=== PATIENT | female | born 1975 | race Caucasian/White ===

== ENCOUNTER → 2019-06-20 07:34 | Outpatient (CLI) | payer OTHER, SELFPAY ==
--- NOTE | ~2019-06-20 | MM_ITS ---
EXAMINATION: MM screening morgan BI w koadk HISTORY: Screening mammogram TECHNIQUE: Craniocaudal and mediolateral oblique 3-D tomosynthesis images were obtained and synthetic 2-D images were generated. CAD analysis was submitted and interpreted. COMPARISON: Comparison to multiple prior studies sequentially, with oldest reviewed study dated 05/2013. BREAST PARENCHYMAL COMPOSITION: The breasts are heterogeneously dense, which may obscure small masses . FINDINGS: There is no evidence of suspicious mass, calcification, or architectural distortion to sugg est malignancy in either breast. There has been no suspicious interval change. IMPRESSION: 1. No mammographic evidence of malignancy. 2. Recommend routine screening mammography in one year. BI-RADS Category 1: Negative Reviewed, dictated and finalized at location A. MA OPERATOR
== END ==
PROVIDERS: Visit Provider Physician Assistant
DX: Z12.31 Encounter for screening mammogram for malignant neoplasm of breast (principal)
CPT/HCPCS: 77063; 77067

== ENCOUNTER 2023-08-01 14:12 | Outpatient (CLI) | payer OTHER, SELFPAY ==
[2023-08-01 15:57] LABS: Anion Gap 3 mmol/L (4-12); Blood Urea Nitrogen 23 mg/dL (7-17); Calcium 9.7 mg/dL (8.4-10.2); Carbon Dioxide 34 mmol/L (22-30); Chloride 100 mmol/L (98-107); Estimated Glomerular Filt Rate > 60; Glucose 102 mg/dL (65-110); Potassium 3.7 mmol/L (3.4-5.0); Sodium 137 mmol/L (137-145)
== END 2023-08-01 14:13 | disposition home or self-care (01) ==
PROVIDERS: Anesthesiology; PCP Physician Assistant; Visit Provider Obstetrics & Gynecology Gynecology
DX: Z79.899 Other long term (current) drug therapy (principal); Z01.818 Encounter for other preprocedural examination
CPT/HCPCS: 36415; 80048

== ENCOUNTER 2023-08-05 02:23 | Day surgery (SDC) | payer OTHER, SELFPAY ==
[2023-07-25 09:24] VITALS: BMI 35.9
--- NOTE | 2023-07-25 09:28 | PC.NURSE ---
Report to the Outpatient Waiting Room, entrance under the green pavilion located off [facility], at time 6:00 on date 08/05/23. Planned Procedure Time: 7:30. Time changes happen often and if your time is changed the preop area will call you the afternoon before. - You and your visitor will be asked to self-screen and do not enter if you have any COVID symptoms. - A mask is optional within the hospital at this time. Patients may have clear liquids (water, carbonated beverages, clear teas, apple juice) until 3 hours prior to surgery (4:30) with a maximum of 20 ounces. - No food from midnight until time of surgery Take the following medications with a SIP of water the morning of surgery: ATENOLOL DO NOT STOP ANY OF YOUR OTHER PRESCRIPTION MEDICATIONS PRIOR TO SURGERY ?EXCEPT THE FOLLOWING Medications to discontinue per physician: N/A Date to take last dose: N/A Please no make-up, nail cape verdean, hairspray, perfume, deodorant, or body powder the day of surgery. No jewelry (including any body piercings) or valuables the day of surgery, leave them at home. Please take a shower or bath the night before, or the morning of, surgery with an antibacterial soap. Wear comfortable, loose fitting clothing. - Jewelry must be removed prior to entering the operating room. Rings and piercings that are not removed may be cut off. - The hospital will not accept responsibility for valuables. - Please leave all valuables, including medications, at home the day of surgery. If you are going home after surgery, a licensed auto crane driver must drive you home. - NO public transportation without another adult if you receive anesthesia. - We recommend that an adult stay with you for 24 hours following discharge. - We also recommend that you do not drive, make important decision, drink alcoholic beverages, or take any drugs that were not prescribed by your health care provider for at least 24 hours after your discharge time. Follow any additional instructions given to you from your surgeon. If you or anyone in your household have experienced Covid symptoms in the past week, please notify your surgeon or the nurse liaison at the phone number below for possible testing. Telephone instructions given to BALBIR KLINE and asked if any additional questions and then verbalized understanding. Patient advised to call surgeon office or pre surgery nurse liaison [phone] if any additional questions.
[2023-08-05 06:35] VITALS: BP 125/62; PULSE 65; RESP 14; TEMP 37.2; O2SAT 100
[2023-08-05] MEDS: LACTATED RINGERS 1,000 ML 30 ML IV CONT (06:35)
[2023-08-05] MEDS: ACETAMINOPHEN 500 MG TABLET 1000 MG PO (06:35)
--- NOTE | 2023-08-05 06:43 | WPDANESEPPF ---
Anes - Initial Pre Proc Eval Procedure: Operation Date: 08/05/23 07:30 Proposed Procedures p Hysteroscopy Dilation and Curettage - Farnaz Salinas MD Date/Time: 08/05/23 06:43 Surgeon: Farnaz Salinas MD Pre Op Diagnosis: Menorrhagia Patient Data Age: 48 Gender: F Height: 1.6 m Weight: 92.1 kg Allergies Allergy/AdvReac Type Severity Reaction Status Date / Time Penicillins Allergy Mild Swelling Verified 07/25/23 09:23 Sulfa (Sulfonamide Allergy Mild Swelling Verified 07/25/23 09:23 Antibiotics) brompheniramine Allergy Swelling Verified 07/25/23 09:34 [From Dimetapp (brompheniramine-PPA)] phenylpropanolamine Allergy Swelling Verified 07/25/23 09:34 [From Dimetapp (brompheniramine-PPA)] Home Medications Medication Instructions Recorded Confirmed Type alprazolam 0.25 mg tablet (Xanax) 0.25 mg PO DAILY PRN Anxiety 05/08/22 07/25/23 History atenolol 50 mg tablet 50 mg PO DAILY 05/08/22 07/25/23 History hydrochlorothiazide 25 mg tablet 25 mg PO DAILY 05/08/22 07/25/23 History metformin 500 mg tablet 1,000 mg PO DAILY 05/08/22 07/25/23 History Patient hx anesthesia problems: none Family hx anesthesia problems: none Results Review: All pre-operative results and documents have been reviewed as part of the pre-operative evaluation. [facility] Past Medical History Medical History Allergic rhinitis, unspecified Benign essential hypertension Depressive disorder Dyshidrotic eczema Generalized anxiety disorder Hyperlipidemia, unspecified Polycystic ovarian syndrome Vitamin D deficiency, unspecified Surgical History Surgical History History of 09/24/2003 History of cholecystectomy 1998 History of removal of calculus of renal pelvis through percutaneous nephrostomy 1993 [place] teeth removed Family History Family History Father Heart disease Hypertension Grandparent Heart disease paternal grandfather Hypertension Paternal Grandfather Social History Social History Smoking status: Never smoker Alcohol intake: current Alcohol use details: 1/MONTH Substance use: never Substance use type: does not use Lack of Transportation: No Lack of Food: Never True Current Housing: I Have Housing Concerned About Future Housing: No Difficulty Paying Gas/Electric Bills: No Difficulty Paying for Meds: No Currently Unemployed: No Difficulty w/ Childcare or Family Care: No Living arrangements: with family Occupation/Education: occupation Gender identity (if verbalized by the patient): Female Sexual Orientation (if Verbalized by the Patient): Straight or Heterosexual Spiritual care concerns: No Anes - Eval Final PreProcedure Day of Procedure 08/05/23 06:43 Patient weight: obese Heart: regular rate and rhythm Lungs: clear to auscultation Airway: Mallampati scale class 1 Neurological: alert and oriented Last oral intake: >/= 8 hours ASA classification: II Emergent: no Anesthetic plan: proceed Anesthesia type and monitoring: general GIVS and standard monitoring Results Review: All pre-operative results and documents have been reviewed as part of the pre-operative evaluation. Informed Consent: The patient's anesthetic plan and its attendant risks and benefits were discussed with the patient/family/POA. Questions were solicited and answers provided to the satisfaction of the patient/family/POA.
--- NOTE | 2023-08-05 07:09 | WPDHPUPDATE1 ---
History and Physical Update Update Date/Time: 08/05/23 07:09 History and Physical has been reviewed, including an updated exam of the patient. There are NO changes in the patient's condition. Risks, benefits, and alternatives have been discussed and questions answered. Patient agrees to proceed with procedure.
--- NOTE | 2023-08-05 07:09 | PM.HPGS ---
History of Present Illness History of Present Illness Consent: Risks, benefits, and alternatives have been discussed and questions answered. Patient agrees to proceed with procedure. Chief complaint: Menorrhagia Narrative: Lidia Cruz is a 48 year old female With irregular and heavy cycles. Pelvic ultrasound showed an ovarian cyst as well as an enlarged uterus with a fundal fibroid. It was recommended to undergo D&C hysteroscopy to further evaluate. Risks of infection, bleeding, perforation, and possible pathology are reviewed. If the fibroid is submucosal, it was also discussed that this may require more than 1 episode to remove due to fluid imbalance. Patient voices understanding and agrees to proceed. Review of Systems Review of Systems: not repeated day of surgery; patient states no changes in status PMFSH Past Medical History Medical History Allergic rhinitis, unspecified Benign essential hypertension Depressive disorder Dyshidrotic eczema Generalized anxiety disorder Hyperlipidemia, unspecified Polycystic ovarian syndrome Vitamin D deficiency, unspecified Surgical History Surgical History History of 09/24/2003 History of cholecystectomy 1998 History of removal of calculus of renal pelvis through percutaneous nephrostomy 1993 [place] teeth removed Family History Family History Father Heart disease Hypertension Grandparent Heart disease paternal grandfather Hypertension Paternal Grandfather Social History Social History Smoking status: Never smoker Alcohol intake: current Alcohol use details: 1/MONTH Substance use: never Substance use type: does not use Lack of Transportation: No Lack of Food: Never True Current Housing: I Have Housing Concerned About Future Housing: No Difficulty Paying Gas/Electric Bills: No Difficulty Paying for Meds: No Currently Unemployed: No Difficulty w/ Childcare or Family Care: No Living arrangements: with family Occupation/Education: occupation Gender identity (if verbalized by the patient): Female Sexual Orientation (if Verbalized by the Patient): Straight or Heterosexual Spiritual care concerns: No Meds Home Medications and Allergies Home Medications Medication Instructions Recorded Confirmed Type alprazolam 0.25 mg tablet (Xanax) 0.25 mg PO DAILY PRN Anxiety 05/08/22 07/25/23 History atenolol 50 mg tablet 50 mg PO DAILY 05/08/22 08/05/23 History hydrochlorothiazide 25 mg tablet 25 mg PO DAILY 05/08/22 07/25/23 History metformin 500 mg tablet 1,000 mg PO DAILY 05/08/22 07/25/23 History Allergies Allergy/AdvReac Type Severity Reaction Status Date / Time Penicillins Allergy Mild Swelling Verified 08/05/23 07:06 Sulfa (Sulfonamide Allergy Mild Swelling Verified 08/05/23 07:06 Antibiotics) brompheniramine Allergy Swelling Verified 08/05/23 07:06 [From Dimetapp (brompheniramine-PPA)] phenylpropanolamine Allergy Swelling Verified 08/05/23 07:06 [From Dimetapp (brompheniramine-PPA)] Vital Signs Vital Signs - 24 hr 08/05/23 06:35 Temperature 99 F Pulse Rate 65 Respiratory Rate 14 Blood Pressure 125/62 Pulse Oximetry 100 Oxygen Delivery Room Air Exam Const: General: obese ( BMI 37.2) Orientation/consciousness: patient oriented x3 Resp: Effort & Inspection: normal respiratory effort GI: GI Palp: Yes Soft to palpation, No Tenderness to palpation present (GI) and No Palpable mass present : External Female Exam: normal external appearance Speculum Exam - Vagina: normal appearance of the vagina and normal vaginal discharge Speculum Exam - Cervix: normal appearance of the cervix Bimanual exam- vagina & uterus: uterine size normal and
[2023-08-05 07:42] VITALS: BP 102/53; PULSE 62; RESP 16; O2SAT 98
--- NOTE | 2023-08-05 07:46 | W.PM.PROC2 ---
Procedure Note - Detailed Date of Procedure 08/05/23 Pre-op Diagnosis Menorrhagia Post-op Diagnosis Same Procedure Performed D&C hysteroscopy Surgeon Farnaz Salinas MD Anesthesia MAC Findings uterus sounds to 8cm and is very anteverted Description of Procedure The patient is taken to the operating room and placed under anesthesia in the dorsal lithotomy position. She was prepped and draped in the usual sterile fashion. [place] speculum was placed in the vagina and the cervix grasped on the anterior lip with a tenaculum. The uterus attempted to be sounded but internal cervical stenosis is encountered. The cervix is able to be entered with a 4 [place]. The uterus was then sounded to 8cm. And noted to be very anteverted. The diagnostic hysteroscope is placed and and no abnormalities are noted. The hysteroscope was removed and the OO sharp curette is used to curette the endometrium until a good uterine cry was noted in all areas. All instruments are removed. Sponge, needle, and instrument counts are correct per the OR staff. The patient was awakened from anesthesia and taken to recovery in stable condition. Estimated Blood Loss 5 Drains No Packing No Pathology Yes ( Endometrial curettings) Complications No immediate complications Condition Stable Disposition PACU
[2023-08-05] MEDS: KETOROLAC 30 MG/ML VIAL (*BKC) IV PUSH (08:05)
[2023-08-05 08:10] VITALS: BP 120/66; PULSE 63; RESP 16; O2SAT 98
[2023-08-05 08:25] VITALS: BP 110/68; PULSE 62; RESP 14
== END 2023-08-05 08:32 | disposition home or self-care (01) ==
PROVIDERS: PCP Physician Assistant; Visit Provider Obstetrics & Gynecology Gynecology
PROC: 0U5B8ZZ Destruction of Endometrium, Via Natural or Artificial Opening Endoscopic (ICD-10-PCS; CPT 58563; principal; 2023-08-05 07:30)
DX: N92.0 Excessive and frequent menstruation with regular cycle (principal); I10 Essential (primary) hypertension; F32.A Depression, unspecified; F41.9 Anxiety disorder, unspecified; E78.5 Hyperlipidemia, unspecified; E28.2 Polycystic ovarian syndrome; E55.9 Vitamin D deficiency, unspecified; E66.9 Obesity, unspecified; Z68.37 Body mass index [BMI] 37.0-37.9, adult; Z79.84 Long term (current) use of oral hypoglycemic drugs; Z98.890 Other specified postprocedural states; Z90.49 Acquired absence of other specified parts of digestive tract; Z82.49 Family history of ischemic heart disease and other diseases of the circulatory system
CPT/HCPCS: 58558; 36415; 80048; 88305; A9270; J1885; J2250; J2704; J3010; J7120

== ENCOUNTER 2023-08-08 15:14 | Emergency (ER) | payer OTHER, SELFPAY ==
--- NOTE | 2023-08-08 15:21 | ED.URI ---
HPI - URI/Sore Throat General Chief Complaint: Upper Respiratory Infection Stated Complaint: Sore Throat/Wound Check Time Seen by Provider: 08/08/23 15:30 Source: patient Mode of arrival: ambulatory Limitations: no limitations History of Present Illness HPI Narrative: Patient is a 48-year-old female who presents with 3 days of sore throat with worsening congestion, headache, body aches and fatigue the last 24 hours. Family members had strep last week. Patient also has wound on finger. Patient has tried Neosporin and prid. Denies any drainage from wound, redness or warmth. Patient still able move finger normally. Patient has been taking Tylenol and ibuprofen. Denies any allergy or cold and flu medicine. Patient had procedure on Saturday but was not intubated. Related Data Home Medications Medication Instructions Recorded Confirmed alprazolam 0.25 mg tablet (Xanax) 0.25 mg PO DAILY PRN Anxiety 05/08/22 08/08/23 atenolol 50 mg tablet 50 mg PO DAILY 05/08/22 08/08/23 hydrochlorothiazide 25 mg tablet 25 mg PO DAILY 05/08/22 08/08/23 metformin 500 mg tablet 1,000 mg PO DAILY 05/08/22 08/08/23 Allergies Allergy/AdvReac Type Severity Reaction Status Date / Time brompheniramine Allergy Mild Swelling Verified 08/08/23 15:21 [From Dimetapp (brompheniramine-PPA)] Penicillins Allergy Mild Swelling Verified 08/08/23 15:21 phenylpropanolamine Allergy Mild Swelling Verified 08/08/23 15:21 [From Dimetapp (brompheniramine-PPA)] Sulfa (Sulfonamide Allergy Mild Swelling Verified 08/08/23 15:21 Antibiotics) Review of Systems Review of Systems: All systems reviewed & are unremarkable except as noted in HPI and below Constitutional: Constitutional: Reports body ache(s), Denies chills, Reports fatigue, Denies fever(s), Reports headache(s), Denies malaise and Denies weakness Eyes: Eyes: Denies blurry vision, Denies itchy eyes and Denies loss of vision ENT: Denies otalgia, Denies headache(s), Reports nasal congestion, Denies sinus pain and Reports sore throat Cardiovascular: Cardiovascular: Denies chest pain, Denies irregular heart rhythm and Denies dyspnea Respiratory: Respiratory: Denies cough and Denies dyspnea Gastrointestinal: Gastrointestinal: Denies abdominal pain, Denies diarrhea, Denies nausea and Denies vomiting Musculoskeletal: Musculoskeletal: Denies back pain, Reports myalgias and Denies arthralgias Integumentary/Breasts: Skin/Breast: Denies pruritus, Denies rash and Reports wounds Neurologic: Reports headache(s), Denies loss of vision and Denies weakness Psychiatric: Psychiatric: Reports no additional psychiatric complaints Endocrine: Endocrine: Denies fatigue Allergic/Immunologic: Allergic/Immunologic: Denies itchy eyes PMFSH Past Medical History Medical History Allergic rhinitis, unspecified Benign essential hypertension Depressive disorder Dyshidrotic eczema Generalized anxiety disorder Hyperlipidemia, unspecified Polycystic ovarian syndrome Vitamin D deficiency, unspecified Surgical History Surgical History History of 09/24/2003 History of cholecystectomy 1998 History of removal of calculus of renal pelvis through percutaneous nephrostomy 1993 [place] teeth removed Family History Family History Father Heart disease Hypertension Grandparent Heart disease paternal grandfather Hypertension Paternal Grandfather Social History Social History Smoking status: Never smoker Alcohol intake: current Alcohol use details: 1/MONTH Substance use: never Substance use type: does not use Lack of Transportation: No Lack of Food: Never True Current Housing: I Have Housing Concerned About Future Housing: No Difficulty Payi
[2023-08-08 15:24] VITALS: BP 144/81; PULSE 63; RESP 16; TEMP 36.3; O2SAT 100
== END 2023-08-08 16:10 | disposition home or self-care (01) ==
PROVIDERS: Emergency Provider Nurse Practitioner Family; PCP Physician Assistant
DX: J06.9 Acute upper respiratory infection, unspecified (principal); S60.412A Abrasion of right middle finger, initial encounter; X58.XXXA Exposure to other specified factors, initial encounter; I10 Essential (primary) hypertension; E78.5 Hyperlipidemia, unspecified; E55.9 Vitamin D deficiency, unspecified; E28.2 Polycystic ovarian syndrome; F41.1 Generalized anxiety disorder; F32.A Depression, unspecified
CPT/HCPCS: 87081; 87880; 99213; G0463

== ENCOUNTER 2024-04-23 08:28 | Emergency (ER) | payer OTHER, SELFPAY ==
--- NOTE | 2024-04-23 08:33 | ED_ITS ---
HPI - URI/Sore Throat General Chief Complaint: Upper Respiratory Infection Stated Complaint: bilateral ear pain,cough,congestion Time Seen by Provider: 04/23/24 08:46 Source: patient, RN notes reviewed and old records reviewed Mode of arrival: ambulatory Limitations: no limitations History of Present Illness HPI Narrative: 48-year-old female presents to the [facility] with complaints of ear discomfort, cough, congestion. Patient reports a sore throat the 1st day, has improved. Patient reports symptoms for 5 days. Has tried expd-zeq-tsszvca products Onset (ago): day(s) (5) Treatments prior to arrival: cold medicine Related Data Allergies Allergy/AdvReac Type Severity Reaction Status Date / Time brompheniramine (From Allergy Mild Swelling Verified 04/23/24 08:51 Dimetapp (brompheniramine-PPA)) Penicillins Allergy Mild Swelling Verified 04/23/24 08:51 phenylpropanolamine (From Allergy Mild Swelling Verified 04/23/24 08:51 Dimetapp (brompheniramine-PPA)) Sulfa (Sulfonamide Allergy Mild Swelling Verified 04/23/24 08:51 Antibiotics) Review of Systems Review of Systems: All systems reviewed & are unremarkable except as noted in HPI and below Constitutional: Constitutional: Reports no additional constitutional complaints ENT: Reports as per HPI Cardiovascular: Cardiovascular: Reports no additional cardiovascular complaints, Denies chest pain and Denies dyspnea Respiratory: Respiratory: Reports no additional respiratory complaints, Denies chest congestion, Denies cough and Denies dyspnea Musculoskeletal: Musculoskeletal: Reports no additional musculoskeletal complaints Integumentary/Breasts: Skin/Breast: Reports system reviewed and no additional complaints, except as docu PMFSH Past Medical History Medical History Dyshidrotic eczema Depressive disorder Benign essential hypertension Polycystic ovarian syndrome Allergic rhinitis, unspecified Generalized anxiety disorder Vitamin D deficiency, unspecified Hyperlipidemia, unspecified Surgical History Surgical History History of hysteroscopy D&C 08/05/2023 [place] teeth removed History of removal of calculus of renal pelvis through percutaneous nephrostomy 1993 History of 09/24/2003 History of cholecystectomy 1998 Family History Family History Father Heart disease Hypertension Grandparent Heart disease paternal grandfather Hypertension Paternal Grandfather Social History Social History Smoking status: Never smoker Alcohol intake: current Alcohol use details: 1/MONTH Substance use: never Substance use type: does not use Do You Feel Safe in your Home?: Yes Lack of Transportation: No Lack of Food: Never True Current Housing: I Have Housing Concerned About Future Housing: No Difficulty Paying Gas/Electric Bills: No Difficulty Paying for Meds: No Currently Unemployed: No Education: Associate Degree Difficulty w/ Childcare or Family Care: No Living arrangements: with family Occupation/Education: occupation Gender identity (if verbalized by the patient): Female Sexual Orientation (if Verbalized by the Patient): Straight or Heterosexual Spiritual care concerns: No Comments At the time of my signature, I reviewed and agree with the nursing past medical, surgical, social, and family history. There is no relevant family history pertinent to the patient complaint. Exam Const: General: cooperative, healthy appearing, comfortable, no acute distress, well developed, alert and well nourished Nutritional Appearance: well nourished Orientation/consciousness: patient oriented x3 Limitations: no limitations HENMT: Head: normal to inspection Ears: EAC's normal and TM abnormal bulging on the left and with fluid behind the TM bilateral (Greater on the left than the right) Face/Nose/Sinus: normal facial exam and face symmetric Face and sinus: normal facial exam and face symmetric Mouth: Yes Normal oral and palatal mucosa present, Yes lip normal, Yes tongue normal and Yes moist mucous membranes Throat: uvula midline, postnasal drainage and no uvular edema Eyes: General: appearance normal, both eyes and all related structures Neck: Neck: normal visual inspection, full ROM, no lymphadenopathy and no meningeal signs Chest: Chest palpation & inspection: normal inspection of the chest Resp: Effort & Inspection: normal respiratory effort and able to speak in complete sentences Auscultation: clear to auscultation bilaterally, no crackles, no rales, no rhonchi and no wheezes Cardio: Rate: regular rate Skin: General skin exam: normal color and no rashes or lesions noted Neuro: General: patient oriented x3, gait normal, moves all extremities and no meningeal signs Cognition (Neuro): normal cognition Speech: normal speech Gait exam (Neuro): Normal gait present Extrem: General: normal to inspection, full ROM, capillary refill normal and normal gait Psych: Appearance: grossly normal and well kempt Mental Status: mental status grossly normal Speech and movement: Normal speech and movement present and Clear speech present Affect: normal affect Attitude: cooperative Course Course Level of Care: Express Care Visit Vital Signs Vital signs: Vital Signs Temperature 97.5 F L 04/23/24 08:34 Pulse Rate 76 04/23/24 08:34 Respiratory Rate 16 04/23/24 08:34 Blood Pressure 135/89 04/23/24 08:34 Pulse Oximetry 100 04/23/24 08:34 Oxygen Delivery Room Air 04/23/24 08:34 Temperature 97.5 F L 04/23/24 08:34 Pulse Rate 76 04/23/24 08:34 Respiratory Rate 16 04/23/24 08:34 Blood Pressure 135/89 04/23/24 08:34 Pulse Oximetry 100 04/23/24 08:34 Oxygen Delivery Room Air 04/23/24 08:34 Reviewed MDM - URI/Sore Throat MDM Narrative Medical decision making narrative: Patient sitting exam room. Nontoxic, vitals stable. Patient in no acute distress. Patient presents with URI symptoms fire 5 days, however symptoms improving. Patient's exam with postnasal drainage, clear fluid behind TMs. Patient appropriate for outpatient follow-up of viral URI Discharge instructions reviewed with patient, as well as provided in writing per nursing staff. The instructions also include specific and strict return/GO TO THE ER as well as f/u information. All questions have been answered, and the patient deny any further questions with discharge and discharge plan. Some parts of this dictation were generated by voice recognition software and may contain typographical and/or grammatical inaccuracies. Differential Diagnosis Differential diagnosis: Likely upper respiratory infection, otitis media, sinusitis, viral infection, bronchitis and pharyngitis Critical Care Time Critical Care Time Critical Care Time: No Discharge Plan Discharge Clinical Impression: Upper respiratory infection, Post-nasal drainage, Acute serous otitis media, bilateral Patient Disposition: Home, Self-Care Condition: Stable Instructions: Antibiotic Form, Upper Respiratory Infection (ED), Fluid In The Ear (Serous Otitis Media) (ED), Postnasal Drip (DC) Additional Instructions: Your symptoms are likely due to a viral illness, which is not treated with antibiotics. Typically viral infections last 7-10 days, can linger for couple of weeks. It is very important to treat your symptoms. Drink plenty of water, Gatorade, Pedialyte, ice pops or Jell-O. -Alternate Tylenol and Motrin per package directions for fever or pain. You can alternate every 4 hours -Antihistamine medication such as Zyrtec/Claritin/Niyah during the day can help improve symptoms. -doing daily nasal irrigations can help relieve pressure your sinuses. Things like a Neti pot -Use Flonase twice a day for 5 days then daily to help reduce the inflammation and dry up your sinuses. -You can also use Mucinex. Be sure to drink plenty of water with this medication at least 8 ounces with every dose and it is important to drink 8 to 10 glasses of water per day. Water is a natural decongestant -Eat and drink things that are easy to swallow, like tea or soup, or popsicles. -Oral rinses such as: Salt water gargles and/or may use topical anesthetic (eg. Chloraseptic spray) or lozenges to relieve dryness or throat pain). -Frequent hand washing or hand neighborhood worker is one of the best ways to prevent spread of infection. -Using a vaporizer or humidifier at night will also help thin secretions and help with coughing up phlegm. -Follow up with primary care provider in 7-10 days if condition is not improving - For new or worsening symptoms go directly to the nearest ER Patient Language: Turkmen Prescriptions: New methylprednisolone [Medrol (Elliott)] 4 mg tablets,dose pack See Rx Instructions PO .COMPLEX Qty: 21 0RF Rx Instructions: orally per package directions No Action spironolactone 50 mg tablet 50 mg PO DAILY Qty: 90 2RF alprazolam [Xanax] 0.25 mg tablet 0.25 mg PO DAILY PRN (Reason: Anxiety) 30 Days Qty: 30 2RF atenolol 50 mg tablet 50 mg PO DAILY Qty: 90 1RF Wegovy 2.4 mg/0.75 mL pen injector 2.4 mg subcut WEEKLY Qty: 3 0RF metformin 500 mg tablet 1,000 mg PO BID Qty: 180 1RF Follow-up/Referrals: David Hernandez MD [Primary Care Provider] - 2 Weeks ([facility] care follow up ) Stand Alone Forms: Work/School Release IP Time of Disposition: 09:00
[2024-04-23 08:34] VITALS: BP 135/89; PULSE 76; RESP 16; TEMP 36.4; O2SAT 100
[2024-04-23 08:48] VITALS: PULSE 76; RESP 16; O2SAT 100
== END 2024-04-23 09:08 | disposition home or self-care (01) ==
PROVIDERS: Emergency Provider Nurse Practitioner; PCP Family Medicine
DX: J06.9 Acute upper respiratory infection, unspecified (principal); R09.82 Postnasal drip; H65.03 Acute serous otitis media, bilateral; I10 Essential (primary) hypertension; E28.2 Polycystic ovarian syndrome; E78.5 Hyperlipidemia, unspecified
CPT/HCPCS: 99213; G0463

== ENCOUNTER 2024-07-11 10:03 | Outpatient (CLI) | payer OTHER, SELFPAY ==
--- NOTE | ~2024-07-11 | US_ITS ---
Pelvic ultrasound. Clinical History: Right ovarian cyst Technique: Realtime transabdominal and transvaginal scanning of the pelvis was performed. Color flow Doppler and Doppler spectral analysis were performed. Findings: The uterus is anteverted. The endometrial stripe has a thickness of 3 mm. Small hypoechoic fibroid measures 2.3 cm in diameter. The right ovary measures 5.9 x 6.2 x 5.5 cm. Simple right ovarian cyst measures 5.5 cm in diameter. The left ovary measures 3.1 x 2.3 x 3.8 cm. Simple left ovarian cyst measures 3.[address] maximum diame ter. There is no evidence of free fluid in the cul de sac. Impression: Bilateral simple ovarian cysts, measuring 5.5 cm on the right ovary, and 3.0 cm on the left ovary. Reviewed, dictated and finalized at [facility]. Impression: Bilateral simple ovarian cysts, measuring 5.5 cm on the right ovary, and 3.0 cm on the left ovary.
== END 2024-07-11 10:04 | disposition home or self-care (01) ==
LOC: MICIMG 10:04
PROVIDERS: PCP Nurse Practitioner; Visit Provider Nurse Practitioner
DX: N83.201 Unspecified ovarian cyst, right side (principal); N83.202 Unspecified ovarian cyst, left side
CPT/HCPCS: 76856

== ENCOUNTER 2024-12-15 15:51 | Outpatient (CLI) | payer OTHER, SELFPAY ==
--- NOTE | ~2024-12-15 | MM_ITS ---
EXAMINATION: MM screening [facility] w [facility] HISTORY: Screening mammogram TECHNIQUE: Craniocaudal and mediolateral oblique 3-D tomosynthesis images were obtained and synthetic 2-D images were generated. CAD analysis was submitted and interpreted. COMPARISON: 06/20/2019 BREAST PARENCHYMAL COMPOSITION:Dense: The breasts are heterogeneously dense, which may obscure small masses. FINDINGS: No suspicious mass, calcification, or architectural distortion are identified in either breast to suggest malignancy. There has been no suspicious interval change. IMPRESSION: No mammographic evidence of malignancy. Recommend routine screening mammography in one year. BI-RADS Category 1: Negative Reviewed, dictated and finalized at location .
== END 2024-12-15 15:52 | disposition home or self-care (01) ==
LOC: MICIMG 15:52
PROVIDERS: PCP Family Medicine; Visit Provider Nurse Practitioner
DX: Z12.31 Encounter for screening mammogram for malignant neoplasm of breast (principal)
CPT/HCPCS: 77063; 77067

== ENCOUNTER 2025-03-15 02:17 | Day surgery (SDC) | payer OTHER, SELFPAY ==
[2025-03-01 12:04] VITALS: BMI 29.6
--- OUTSIDE RECORDS SUMMARY | 2025-03-15 02:21 | XMS_ITS | Clinical Summary ---
Author Organization [facility] Address [address] [place] [address] Care Team Providers Care Pebble Mill Operator Name Role Phone aDvid Hernandez MD Primary Care Provider Allergies Active Allergy Reactions Criticality Noted Date Comments Brompheniramine Hives Reaction: Hives, Penicillins Hives,Rash Reaction: Hives, Skin Rash, Phenylpropanolamine Hives Reaction: Hives, Sulfanilamide Hives,Rash Reaction: Hives, Skin Rash, Medications promethazine-DM (PROMETHAZINE-D M) 1.25-3 mg/mL syrup Take 5 mL by mouth 4 (four) times a day as needed for cough 118 mL 5 Active fluticasone propionate (FLONASE) 50 mcg/actuation nasal spray Administer 1 spray into each nostril daily 16 g 5 Active Active Problems Problem Noted Date Diagnosed Date Hypertension 01/19/2013 Overview (08/01/2016): HYPERTENSION NOS Surgical History Surgery Date Site/Laterality Comments CHOLECYSTECTOMY 1997 Cholecystectomy SECTION 2004 section Medical History Medical History Date Comments Disorder of gallbladder Gallblad dilia disease Hypertension Hypertension Anxiety disorder Anxiety Family History Medical History Relation Name Comments Coronary artery disease Father Stevo nary artery disease; Hypertension Father Hypertension; Depression Mother Depression; Hyperlipidemia Mother Hyperlipidemi a; Rheum arthritis Mother Rheumatoid a rthritis; Relation Name Status Comments Father Mother Social History Tobacco Use Types Packs/Day Years Used Date Smoking Tobacco: Never Assessed Alcohol Use Standard Drinks/Week Comments No 0 (1 standard drink = 0.6 oz pur e alcohol) Personal Safety Answer Date Recorded Have you ever been in or are you currently in a harmful physical or emotional relationship or is someone making you feel afraid or unsafe? Denies 05/09/2024 Comments Unknown Sex and Gender Information Value Date Recorded Sex Assigned at Not on file Legal Sex Female 3:01 AM PLASMA PROCESSOR Gender Identity Not on file Sexual Orientation Not on file Last Filed Vital Signs Vital Sign Reading Time Taken Comments Blood Pressure 136/89 05/09/2024 4:15 PM PLASMA PROCESSOR Pulse 70 05/09/2024 4:15 PM PLASMA PROCESSOR Temperature 36.7 C (98.1 F) 05/09/2024 2:13 PM PLASMA PROCESSOR Respiratory Rate 16 05/09/2024 4:15 PM PLASMA PROCESSOR Oxygen Saturation 100% 05/09/2024 4:15 PM PLASMA PROCESSOR Inhaled Oxygen Concentration - - Weight 127.5 kg (281 lb) 01/19/2013 12:59 PM CDT Height 160 cm (5' 3) 01/19/2013 12:59 PM CDT Body Mass Index 49.78 01/19/2013 12:59 PM CDT Plan of Treatment Health Maintenance Due Date Last Done Comments Cervical Cancer Screening 1975 Colon Cancer Screening-Colonoscopy 1975 Depression Screening 1975 Hepatitis C Screening 1975 DTaP/Tdap/Td Vaccine (1 - Tdap) 1986 Hepatitis B Screening 1993 Regular Well Visit/Exam 18-64 1993 Breast Cancer Screening-Mammogram 07/14/2024 07/15/2023, 07/15/2023 Covid-19 Vaccine (3 - 2024-2 6 season) 2024 08/27/2020, 08/06/2020 Influenza Vaccine (#1) 2024 Pneumococcal vaccine <65 Aged Out No longer eligible based on patient's age to complete this topic Insurance Care Teams Pebble Mill Operator Relationship Specialty Start Date End Date David Hernandez MD [address] [place] [id number] PCP - General Family Medicine 05/09/24
--- OUTSIDE RECORDS SUMMARY | 2025-03-15 02:21 | XMS_ITS | Clinical Summary ---
Author Organization [facility] Address [address] [place] [id number] Care Team Providers Care Newspaper Photo Editor Name Role Phone David Hernandez MD Primary Care Provider [phone] Allergies Active Allergy Reactions Criticality Noted Date Comments Dimetapp Children's Cold-Cough Swelling 12/13 Penicillins Other (see comment) 12/13/2022 As a baby Sulfa Antibiotics Other (see comment) As a baby Medications atenolol (TENORMIN) 50 MG tablet 10/26/2022 Active metFORMIN (GLUCOPHAGE) 500 MG tablet 10/26/2022 Activ e cefdinir (OMNICEF) 300 MG Cap capsule Take 1 capsule (300 mg total) by mouth 2 (two) times daily. 14 capsule 04/25/2024 Active Social History Tobacco Use Types Packs/Day Years Used Date Smoking Tobacco: Never Smokeless Tobacco: Never Tobacco Cessation:Counseling Given: Not Answered Alcohol Use Standard Drinks/Week Comments Not Currently 0 (1 standard drink = 0.6 oz pur e alcohol) Comments No Sex and Gender Information Value Date Recorded Sex Assigned at Not on file Legal Sex Female 8:17 PM CDT Gender Identity Not on file Sexual Orientation Not on file Last Filed Vital Signs Vital Sign Reading Time Taken Comments Blood Pressure 134/89 04/25/2024 8:13 AM CHIPS SCREEN TENDER Pulse 67 04/25/2024 8:13 AM CHIPS SCREEN TENDER Temperature 36.5 C (97.7 F) 04/25/2024 8:13 AM CHIPS SCREEN TENDER Respiratory Rate 16 04/25/2024 8:13 AM CHIPS SCREEN TENDER Oxygen Saturation 99% 04/25/2024 8:13 AM CHIPS SCREEN TENDER Inhaled Oxygen Concentration - - Weight 80.3 kg (177 lb) 04/25/2024 8:13 AM CHIPS SCREEN TENDER Height 160 cm (5' 3) 04/25/2024 8:13 AM CHIPS SCREEN TENDER Body Mass Index 31.35 04/25/2024 8:13 AM CHIPS SCREEN TENDER Plan of Treatment Health Maintenance Due Date Last Done Comments Colorectal Cancer Screening Colonoscopy (10 Years) 1975 Annual Physical 1978 Hepatitis C 1993 DTaP, Tdap and Td Vaccines ( 1 - Tdap) 1994 Hepatitis B Vaccines (1 of 3 - 19+ 3-dose series) 1994 Cervical Cancer Screening Pa p Smear (Age 30 to 64) Every 3 Years 01/31/2020 01/30/2017 Cervical Cancer Screening Pa p with HPV Testing (Age 30 to 64) Every 5 Years 01/30/2022 01/30/2017 Cervical Cancer Screening wi th HPV 01/30/2022 COVID-19 Vaccine (2024-2 6 season) 2024 08/27/2020, 08/06/2020 Influenza Adult (#1) 2025 Mammogram Screening 07/14/2025 07/15/2023 Hepatitis A Vaccines Aged Out No long er eligible based on patient's age to complete this topic Meningococcal B Vaccine Aged Out No l onger eligible based on patient's age to complete this topic Meningococcal Vaccine Aged Out No romana indra eligible based on patient's age to complete this topic Pneumococcal Vaccine: Pediatrics (0 to 5 Years) and At-Risk Patients (6 to 49 Years) Aged Out No longer eligible b ased on patient's age to complete this topic RSV Immunizations Under 20 Months Aged Out No longer eligible b ased on patient's age to complete this topic Insurance [employer] Care Teams Newspaper Photo Editor Relationship Specialty Start Date End Date David Hernandez MD [address] [place] [id number] PCP - General FAMILY PRACTICE 12/13/22
--- OUTSIDE RECORDS SUMMARY | 2025-03-15 02:21 | XMS_ITS | Encounter Summary ---
Author Organization [facility] Address [address] [place] [address] Care Team Providers Care Pediatric Nurse Name Role Phone Unavailable Primary Care Provider Unavailabl e Encounter Details Date Type Department Care Team (Late st Contact Info) Description 05/12/2024 Lab Requisition [facility] - DermPath Lab [address] [place] [id number] Amanda Jones PA [address] [place] [address] Social History Tobacco Use Types Packs/Day Years Used Date Smoking Tobacco: Never Assessed Comments Unknown Sex and Gender Information Value Date Recorded Sex Assigned at Not on file Legal Sex Female 7:04 AM CDT Gender Identity Not on file Sexual Orientation Not on file documented as of this encounter Plan of Treatment Not on file documented as of this encounter Procedures Procedure Name Priority Date/Time Associated Diagnosis Comments DERMATOPATHOLOGY Routine 05/12/2024 1:08 PM [facility] documented in this encounter Results * DERMATOPATHOLOGY (05/12/2024 1:08 PM [facility]) Case Report Dermatopathology Report Case: [id number] Authorizing Provider: Amanda Jones PA Collected: 05/12/2024 01:08 PM Ordering Location: [facility] - Received: 05/12/2024 04:38 PM DermPath Lab Pathologist: Willian Hernandez MD Specimen: Skin, left zygoma 5 5:09 PM [facility] Final Diagnosis Specimen A. SKIN, left zygoma: INTRADERMAL MELANOCYTIC NEVUS WITH CONGENITAL FEATURES (D22.9) 5 5:09 PM [facility] at [address] [facility] Clinical History Nevus; Irritated 5 5:09 PM [facility] DERMATOPATHOLOGY [facility]ORAT[facility] Gross Description Specimen A: Received is one formalin filled container labeled with the patient's name and designated left zygoma. The specimen consists of a shave biopsy measuring 8x7x4 mm. Jar 0. 5 5:09 PM [facility] DERMATOPATHOLOGY LABORATORY Microscopic Description Specimen A. SKIN, left zygoma: There are nests of cytologically bland melanocytes within the dermis. Some of these melanocytes are concentrated around blood vessels and adnexal structures. 5 5:09 PM [facility] DERMATOPATHOLOGY LABORATORY Disclaimer An external and internal positive and negative controls are appropriate for the histochemical, immunohistochemical and immunofluorescence stain(s) in this case (if any), except where stated explicitly. The performance characteristics of the stain(s) cited in this report were developed and its performance characteristic determined by the Dermatopathology Laboratory at [facility], directed by Dr. Christine Hernandez. These tests need not be, and therefore are not, approved by the [place] Food and Drug Administration. The tests are used for clinical purposes. Billing Codes Specimen Charges Stain Charges 59848 1 5 5:09 PM [facility] DERMATOPATHOLOGY LABORATORY Embedded Images 5 5:09 PM [facility] DERMATOPATHOLOGY [facility] Pathology/Cytolo gy TISSUE SPECIMEN FROM SKIN / Unknown 05/12/2024 1:08 PM [facility] 05/12/2024 4:38 PM [facility] Amanda [facility] - PATHOLOGY/CYTOLOGY ORDERAB LES Final Result DERMATOPATHOLOGY LABORATORY [facility] - Department of Dermatology [address] [place] [address], [facility] [phone] documented in this encounter Visit Diagnoses Not on filedocumented in this encounter
--- OUTSIDE RECORDS SUMMARY | 2025-03-15 02:21 | XMS_ITS | Clinical Summary ---
Author Organization [facility] Address [address] [place] [place] [address] Care Team Providers Care Development Lead Name Role Phone Unavailable Primary Care Provider Unavailabl e Source Comments [facility],non-owned Affiliates and Associated Physician Practices is amultiple site organization consisting of ambulatory clinics and hospital sitesin [place], [place], [place] and [place]. This disclosure is being madepursuant to the Care Everywhere program and may not contain all information available regarding this patient. Last updated 18.[facility] Social History Tobacco Use Types Packs/Day Years Used Date Smoking Tobacco: Never Assessed Comments Unknown Sex and Gender Information Value Date Recorded Sex Assigned at Not on file Legal Sex Female 7:04 AM CDT Gender Identity Not on file Sexual Orientation Not on file Plan of Treatment Health Maintenance Due Date Last Done Comments COLOGUARD (AGES 45-75) - COL ON CA SCREENING 1975 COLON MONITORING 1975 COLONOSCOPY - COLON CA SCREENING 1975 CT COLONOGRAPHY - COLON CA SCREENING 1975 Colorectal Cancer Screening 1975 FIT - COLON CA SCREENING 1975 FLEX SIG - COLON CA SCREENING 1975 LIPID TESTING 1975 MAMMOGRAM 1975 HIV SCREENING 1990 HEPATITIS C SCREENING 05/08/1993 DTAP/TDAP/TD VACCINES (1 - Tdap) 1994 HEPATITIS B VACCINE (1 of 3 - 19+ 3-dose series) 1994 PAP SMEAR 1996 DEPRESSION SCREENING 04/29/2024 COVID-19 VACCINE ( - 2023-2 5 season) 2024 INFLUENZA VACCINE (#1) 2024 ZOSTER VACCINE (1 of 2) 2025 HIB VACCINE Aged Out No longer eligi ble based on patient's age to complete this topic HPV VACCINE Aged Out No longer eligi ble based on patient's age to complete this topic MENINGOCOCCAL (Group B) VACC INE SHARED DECISION-MAKING Aged Out No longer eligibl e based on patient's age to complete this topic MENINGOCOCCAL GROUPS A/C/Y/W VACCINE Aged Out No longer eligible b ased on patient's age to complete this topic Insurance SELF PAY NO INSURANCE Member Subscriber Plan / Payer (Ef fective for All Dates) Name:Lidia Garrison Member ID:Not on file Relation to Subscriber:Not on file Name:LIDIA GARRISON Subscriber ID:Not on file Address: [address] [place] [phone] Payer ID:Not on file Group ID:Not on file Type:Self Pay Address: [facility] SELF PAY NO INSURANCE Member Subscriber Plan / Payer (Ef fective for All Dates) Name:Shannonmeet Lidia Member ID:Not on file Relation to Subscriber:Not on file Name:LIDIA GARRISON Subscriber ID:Not on file Address: [address] [place] [phone] Payer ID:Not on file Group ID:Not on file Type:Self Pay Address: [facility] SELF PAY NO INSURANCE Member Subscriber Plan / Payer (Ef fective for All Dates) Name:ShannonStanley janena Member ID:Not on file Relation to Subscriber:Not on file Name:SHANNONSTANLEY JANENA Subscriber ID:Not on file Address: [address] [place] [phone] Payer ID:Not on file Group ID:Not on file Type:Self Pay Address: [facility]
--- OUTSIDE RECORDS SUMMARY | 2025-03-15 02:21 | XMS_ITS | Clinical Summary ---
Author Organization [facility] Address [address] [facility] [place] [address] Care Team Providers Care Site Foreman Name Role Phone Unavailable Primary Care Provider Unavailabl e Social History Tobacco Use Types Packs/Day Years Used Date Smoking Tobacco: Never Assessed Comments Unknown Sex and Gender Information Value Date Recorded Sex Assigned at Not on file Legal Sex Female 5:43 PM [employer] Gender Identity Not on file Sexual Orientation Not on file Plan of Treatment Health Maintenance Due Date Last Done Comments DTAP/TDAP/TD VACCINES (1 - Tdap) 1994 HEPATITIS B VACCINES (1 of 3 - 19+ 3-dose series) 1994 HPV/Cotest (21-29) 1996 HPV/Cotest (30-65) 2005 CERVICAL CANCER SCREENING 01/31/2020 PAP SMEAR 01/31/2020 01/30/2017 COLORECTAL SCREENING 2020 Colorectal Cancer Screening 2020 FIT-DNA Q 3 years 2020 FIT/FOBT Q 1 year 2020 Flex Sig/CT Colonography Q 5 years 2020 BREAST CANCER SCREENING 07/14/2024 07/15/19 24, 01/16/2022, 01/16/2022, Additional history exists INFLUENZA VACCINE (#1) 2024 Procedures Procedure Name Priority Date/Time Associated Diagnosis Comments MAMMO 3D GEOVANNA SCREEN BILAT W OR WO CAD Routine 07/15/2023 3:19 PM CDT Breast cancer screening by mammogram from Last 3 Months or Most Recently Relevant to Health Maintenance Results * MAMMO 3D GEOVANNA SCREEN BILAT W OR WO CAD (07/15/2023 3:19 PM CDT) Anatomical Region Laterality Modality Breast Bilateral Mammography 07/15/2023 3:20 PM CDT Impressions 07/15/2023 3:57 PM CDT IMPRESSION: 1. BI-RADS Category 2. benign findings. Annual screening mammography recommended. 2. Breast Composition: The breasts are heterogeneously dense, which may obscure small masses or lesions. A) A negative report should not delay a biopsy if a dominant or clinically suspicious mass is present. B) Adenosis and dense breasts may obscure an underlying neoplasm. C) Study interpreted with computer-aided detection. MQSA BI-RADS Categories: Category 0 - needs additional imaging evaluation. Category 1 - negative. Category 2 - benign findings. Category 3 - probably benign findings, but short interval followup is recommended. Category 4 - suspicious abnormality-biopsy should be considered. Category 5 - highly suggestive of malignancy and appropriate action should be taken. Narrative 07/15/2023 3:57 PM CDT EXAMINATION: MAMMO 3D GEOVANNA SCREEN BILAT W OR WO CAD WITH 3-D TOMOSYNTHESIS AND COMPUTER-AIDED DETECTION (CAD) DATE: 07/15/2023 3:19 PM COMPARISON STUDIES: January 16, 2022, August 12, 2020. CLINICAL HISTORY: Screening, no complaints. Family history of breast CA, grandmother. Breast cancer screening by mammogram FINDINGS: Bilateral CC, MLO, 2-D and 3-D acquisitions. Heterogeneously dense residual fibroglandular parenchyma unfortunately could obscure underlying lesions. Similar in appearance and distribution to the previous exams. No evidence of dominant mass, architectural distortion, skin thickening, nipple retraction or suspicious clusters of microcalcifications. Benign calcifications redemonstrated. . Milad[facility] MAMMO ORDERABLES Final Result from Last 3 Months or Most Recently Relevant to Health Maintenance Insurance [facility] OPT[employer] PPO [id number] [facility] Address: [place] [address]
[2025-03-15 09:11] VITALS: BP 137/93; PULSE 59; RESP 18; TEMP 36.1; O2SAT 100; BMI 29.9
[2025-03-15 09:15] LABS: BEDSIDEPREGUCG Negative (Negative)
[2025-03-15] MEDS: LACTATED RINGERS 1,000 ML 150 ML IV CONT (09:23)
--- NOTE | 2025-03-15 09:42 | WPDANESEPPF ---
Anes - Initial Pre Proc Eval Procedure: Operation Date: 03/15/25 10:00 Proposed Procedures p Screening Colonoscopy - Zeferino Saab MD Date/Time: 03/15/25 09:42 Surgeon: Zeferino Saab MD Pre Op Diagnosis: Encounter for screening for malignant neoplasm of Patient Data Age: 49 Gender: F Height: 1.57 m Weight: 74.4 kg Last Vital Signs Temp 36.1 C L 03/15/25 09:11 Pulse 59 L 03/15/25 09:11 Resp 18 03/15/25 09:11 BP 137/93 H 03/15/25 09:11 Pulse Ox 100 03/15/25 09:11 O2 Del Method Room Air 03/15/25 09:11 Allergies Allergy/AdvReac Type Severity Reaction Status Date / Time brompheniramine (From Allergy Mild Swelling Verified 03/15/25 09:10 Dimetapp (brompheniramine-PPA)) Penicillins Allergy Mild Swelling Verified 03/15/25 09:10 phenylpropanolamine (From Allergy Mild Swelling Verified 03/15/25 09:10 Dimetapp (brompheniramine-PPA)) Sulfa (Sulfonamide Allergy Mild Swelling Verified 03/15/25 09:10 Antibiotics) Home Medications ?Medication ?Instructions ?Recorded ?Confirmed ?Type spironolactone 50 mg tablet 50 mg PO DAILY #90 tabs 09/09/23 03/15/25 Rx alprazolam 0.25 mg tablet (Xanax) 0.25 mg PO DAILY PRN Anxiety 30 08/20/24 03/01/25 Rx days #30 tabs metformin 500 mg tablet 1,000 mg (2 x 500 mg) PO BID 90 09/25/24 03/15/25 Rx days #360 tabs atenolol 50 mg tablet 50 mg PO DAILY #90 tabs 12/24/24 03/15/25 Rx semaglutide (weight loss) 2.4 2.4 mg (0.75 mL) subcut WEEKLY 01/05/25 03/15/25 Rx mg/0.75 mL subcutaneous pen days #9.75 mL injector (Wegovy) aspirin 81 mg tablet,delayed 81 mg PO DAILY 03/01/25 03/15/25 History release (Adult Low Dose Aspirin) Laboratory Tests 03/15/25 03/15/25 09:11 09:21 POC Capillary Glucose 71 mg/dl (65-105) POC Urine HCG, Qual Negative (Negative) Patient hx anesthesia problems: none Family hx anesthesia problems: none Results Review: All pre-operative results and documents have been reviewed as part of the pre-operative evaluation. [facility] Past Medical History Medical History Obesity (BMI 30.0-34.9) Essential hypertension Dyshidrotic eczema Depressive disorder Benign essential hypertension Polycystic ovarian syndrome Allergic rhinitis, unspecified Generalized anxiety disorder Vitamin D deficiency, unspecified Hyperlipidemia, unspecified Surgical History Surgical History History of hysteroscopy D&C 08/05/2023 [place] teeth removed History of removal of calculus of renal pelvis through percutaneous nephrostomy 1993 History of 09/24/2003 History of cholecystectomy 1998 Family History Family History Father Heart disease Hypertension Grandparent Heart disease paternal grandfather Hypertension Paternal Grandfather Social History Social History Smoking status: Never smoker Alcohol intake: never Alcohol use details: 1/MONTH Substance use: never Substance use type: does not use Do You Feel Safe in your Home?: Yes Lack of Transportation: No Lack of Food: Never True Current Housing: I Have Housing Concerned About Future Housing: No Difficulty Paying Gas/Electric Bills: No Difficulty Paying for Meds: No Currently Unemployed: No Education: Associate Degree Difficulty w/ Childcare or Family Care: No Living arrangements: with family Occupation/Education: occupation Gender identity (if verbalized by the patient): Female Sexual Orientation (if Verbalized by the Patient): Straight or Heterosexual Spiritual care concerns: No Anes - Eval Final PreProcedure Day of Procedure 03/15/25 09:42 Patient weight: obese Heart: regular rate and rhythm Lungs: clear to auscultation Airway: Mallampati scale class II Neurological: alert and oriented Last oral intake: >/= 8 hours ASA classification: III Emergent: no Anesthetic plan: proceed Anesthesia type and monitoring: general GIVS and standard monitoring Results Review: All pre-operative results and documents have been reviewed as part of the pre-operative evaluation. Informed Consent: The patient's anesthetic plan and its attendant risks and benefits were discussed with the patient/family/POA. Questions were solicited and answers provided to the satisfaction of the patient/family/POA.
--- NOTE | 2025-03-15 10:02 | PM.HPGS ---
History of Present Illness History of Present Illness Consent: Risks, benefits, and alternatives have been discussed and questions answered. Patient agrees to proceed with procedure. Chief complaint: Encounter for screening for malignant neoplasm of Narrative: Lidia Cruz is a 49 year old female here for first screening colonoscopy Review of Systems Review of Systems: All systems reviewed & are unremarkable except as noted in HPI and below PMFSH Past Medical History Medical History (Updated 03/15/25 @ 10:02 by Zeferino Saab MD) Colon cancer screening Obesity (BMI 30.0-34.9) Essential hypertension Dyshidrotic eczema Depressive disorder Benign essential hypertension Polycystic ovarian syndrome Allergic rhinitis, unspecified Generalized anxiety disorder Vitamin D deficiency, unspecified Hyperlipidemia, unspecified Surgical History Surgical History History of hysteroscopy D&C 08/05/2023 [place] teeth removed History of removal of calculus of renal pelvis through percutaneous nephrostomy 1993 History of 09/24/2003 History of cholecystectomy 1998 Family History Family History Father Heart disease Hypertension Grandparent Heart disease paternal grandfather Hypertension Paternal Grandfather Social History Social History Smoking status: Never smoker Alcohol intake: never Alcohol use details: 1/MONTH Substance use: never Substance use type: does not use Do You Feel Safe in your Home?: Yes Lack of Transportation: No Lack of Food: Never True Current Housing: I Have Housing Concerned About Future Housing: No Difficulty Paying Gas/Electric Bills: No Difficulty Paying for Meds: No Currently Unemployed: No Education: Associate Degree Difficulty w/ Childcare or Family Care: No Living arrangements: with family Occupation/Education: occupation Gender identity (if verbalized by the patient): Female Sexual Orientation (if Verbalized by the Patient): Straight or Heterosexual Spiritual care concerns: No Meds Home Medications and Allergies Home Medications ?Medication ?Instructions ?Recorded ?Confirmed ?Type spironolactone 50 mg tablet 50 mg PO DAILY #90 tabs 09/09/23 03/15/25 Rx alprazolam 0.25 mg tablet (Xanax) 0.25 mg PO DAILY PRN Anxiety 30 08/20/24 03/01/25 Rx days #30 tabs metformin 500 mg tablet 1,000 mg (2 x 500 mg) PO BID 90 09/25/24 03/15/25 Rx days #360 tabs atenolol 50 mg tablet 50 mg PO DAILY #90 tabs 12/24/24 03/15/25 Rx semaglutide (weight loss) 2.4 2.4 mg (0.75 mL) subcut WEEKLY 90 01/05/25 03/15/25 Rx mg/0.75 mL subcutaneous pen days #9.75 mL injector (Wegovy) aspirin 81 mg tablet,delayed 81 mg PO DAILY 03/01/25 03/15/25 History release (Adult Low Dose Aspirin) Allergies Allergy/AdvReac Type Severity Reaction Status Date / Time brompheniramine (From Allergy Mild Swelling Verified 03/15/25 09:10 Dimetapp (brompheniramine-PPA)) Penicillins Allergy Mild Swelling Verified 03/15/25 09:10 phenylpropanolamine (From Allergy Mild Swelling Verified 03/15/25 09:10 Dimetapp (brompheniramine-PPA)) Sulfa (Sulfonamide Allergy Mild Swelling Verified 03/15/25 09:10 Antibiotics) Vital Signs Vital Signs - 24 hr 03/15/25 09:11 Temperature 97 F L Pulse Rate 59 L Respiratory Rate 18 Blood Pressure 137/93 H Pulse Oximetry 100 Oxygen Delivery Room Air Exam Const: General: comfortable and no acute distress HENMT: Face/Nose/Sinus: Normal nares present Eyes: General: appearance normal, both eyes and all related structures Neck: Neck: no JVD Resp: Auscultation: clear to auscultation bilaterally Cardio: Rate: regular rate Rhythm: regular rhythm GI: Inspection: non-distended GI Palp: Yes Soft to palpation Skin: General skin exam: normal color Extrem: General: normal to inspection Psych: Mental Status: mental status grossly normal Assessment and Plan Assessment and plan (1) Colon cancer screening: Code(s): Z12.11 - Encounter for screening for malignant neoplasm of colon Status: Acute Assessment and Plan: colonoscopy
[2025-03-15 10:23] VITALS: BP 97/67; PULSE 77; RESP 22; O2SAT 100
[2025-03-15 10:33] VITALS: BP 113/66; PULSE 67; RESP 20; O2SAT 100
[2025-03-15 10:43] VITALS: BP 110/75; PULSE 60; RESP 14; O2SAT 100
== END 2025-03-15 10:50 | disposition home or self-care (01) ==
PROVIDERS: Anesthesiology; PCP Family Medicine; Visit Provider Internal Medicine Gastroenterology
PROC: 0DJD8ZZ Inspection of Lower Intestinal Tract, Via Natural or Artificial Opening Endoscopic (ICD-10-PCS; CPT 45378; principal; 2025-03-15 10:00)
DX: Z12.11 Encounter for screening for malignant neoplasm of colon (principal); K64.8 Other hemorrhoids; I10 Essential (primary) hypertension; E55.9 Vitamin D deficiency, unspecified; E78.5 Hyperlipidemia, unspecified; Z79.85 Long-term (current) use of injectable non-insulin antidiabetic drugs; F41.8 Other specified anxiety disorders; E66.9 Obesity, unspecified; Z68.30 Body mass index [BMI] 30.0-30.9, adult
CPT/HCPCS: 45378; 82948; J2704; J7120